=== PATIENT | female | born 1995 | race Caucasian/White ===

== ENCOUNTER 2017-12-07 10:11 | Emergency (ER) | payer OTHER ==
[2017-12-07 10:16] VITALS: BMI 24.2
--- NOTE | 2017-12-07 11:17 | PDOC ---
History of Present Illness - General Chief Complaint: Pain Stated Complaint: ABD PAIN Time Seen by Provider: 12/07/17 10:42 History Source: Patient - History of Present Illness Timing/Duration: reports: constant Quality: reports: severe Abdominal Pain Onset Location: reports: suprapubic Past History - Past Medical History Allergies/Adverse Reactions: Allergies Allergy/AdvReac Type Severity Reaction Status Date / Time lidocaine Allergy Verified 12/07/17 10:17 Home Medications: Ambulatory Orders Ibuprofen [Motrin -] 2 tab PO Q6H #30 tablet 12/07/17 COPD: No - Suicide/Smoking/Psychosocial Hx Smoking History: Never smoked Information on smoking cessation initiated: No Review of Systems - Review of Systems Constitutional: No: Chills, Fever ABD/GI: Yes: Abdominal cramping. No: Blood Streaked Bowels, Constipated, Diarrhea, Nausea, Rectal Bleeding, Vomiting : No: Dysuria, Discharge, Flank Pain, Hematuria, Lesions Musculoskeletal: No: Back Pain *Physical Exam - Vital Signs Last Vital Signs Temp Pulse Resp BP Pulse Ox 99.2 F 100 H 18 144/93 100 12/07/17 10:13 12/07/17 10:13 12/07/17 10:13 12/07/17 10:13 12/07/17 11:06 - Physical Exam General Appearance: Yes: Appropriately Dressed, Mild Distress HEENT: positive: Normal Voice Neck: positive: Supple Respiratory/Chest: negative: Respiratory Distress Female Pelvic Exam: positive: normal external exam, cervical os closed, adnexal tenderness (on the L). negative: CMT, discharge, lesions, vaginal bleeding Gastrointestinal/Abdominal: positive: Normal Bowel Sounds, Tender (sig ttp to suprapubic area diffusely, NT over mcburneys), Soft. negative: Distended, Guarding, Rebound, Hernia Musculoskeletal: negative: CVA Tenderness Extremity: positive: Normal Inspection Integumentary: positive: Dry, Warm Neurologic: positive: Fully Oriented, Alert, Normal Mood/Affect ED Treatment Course - LABORATORY CBC & Chemistry Diagram: 12/07/17 11:15 12/07/17 11:15 Medical Decision Making - Medical Decision Making 12/07/17 11:12 22-year-old female, denies any past medical history, here with pelvic pain. Pt states she was in her usual state of health until last night when she developed diffuse pelvic pain greater on the left. Patient reports that she fell asleep at some point and woke up this morning with severe pain with urination. No hematuria, flank pain, nausea, vomiting, fever or chills. Denies any abnormal vaginal discharge, foul odor, itching, acute change in bowel movements. No h/o similar pain. ? h/o fibroids. Reports heavy monthly menses. No known h/o ovarian cysts. Sexually active. Not on any control. Denies any history of STDs. ? h/o renal stones, no h/o gallstones See exam Pelvic pain R/o preg vs uti vs torsion vs PID/TOA vs appy -pain control -[employer] -labs -UA -US vs CT 12/07/17 12:37 12/07/17 12:49 test negative. Rest of labs and UA unremarkable. Ultrasound in progress. Might need CT rule out appy though not sig tender over mcburneys. 12/07/17 15:05 Ultrasound read as most likely ruptured hemorrhagic R ovarian cyst with small amount of free fluid, no evidence of torsion. Patient significantly improved with meds. Stable for discharge with pain control, watchful waiting and [employer] referral. Reasons to return to ER discussed with patient *DC/Admit/Observation/Transfer Diagnosis at time of Disposition: Ruptured ovarian cyst - Discharge Dispostion Disposition: HOME Condition at time of disposition: Improved - Prescriptions Prescriptions: Ibuprofen [Motrin -] 2 tab PO Q6H #30 tablet - Referrals Referrals: Sima Sweeney MD [Primary Care Provider] - Param Burnett MD [Staff Physician] - - Patient Instructions Printed Discharge Instructions: Ovarian Cyst Additional Instructions: You have a right ovarian cyst which are common in young woman of reproductive age. Fortunately, most ovarian cyst did not require surgery but are treated with pain medications and watchful waiting to see if cyst resolve on its own which they often do You will need to follow up with COMM[employer]ITY [employer]ICE WORKER in a week or 2 for further evaluation and management. If in this period of observation the cyst enlarges, surgery can be a possibility. Return to ER for worsening pain, dizziness, nausea or vomiting - Post Discharge Activity
[2017-12-07 11:32] LABS: BASO % 0.8 % (0-2.0); EOS % 4.4 % (0-4.5); HEMATOCRIT 42.5 % (32.4-45.2); HEMOGLOBIN 14.4 GM/dL (10.7-15.3); LYMPH % 24.5 % (8-40); MCH 29.5 pg (25.7-33.7); MCHC 33.8 g/dl (32.0-36.0); MEAN CELL VOLUME 87.1 fl (80-96); MEAN PLT VOLUME 8.2 fl (7.5-11.1); MONO % 8.6 % (3.8-10.2); NEUT % 61.7 % (42.8-82.8); PLATELET COUNT 264 K/MM3 (134-434); RBC 4.88 M/mm3 (3.60-5.2); RDW 13.7 % (11.6-15.6); WHITE BLOOD COUNT 8.3 K/mm3 (4.0-10.0)
[2017-12-07 11:54] LABS: ALBUMIN 3.8 g/dl (3.4-5.0); ALK PHOS 50 U/L (45-117); ANION GAP 8 MMOL/L (8-16); BILIRUBIN,TOTAL 0.4 mg/dL (0.2-1.0); BLOOD UREA NITROGEN 14 mg/dL (7-18); CHLORIDE 106 mmol/L (98-107); CO2 25 mmol/L (21-32); CREATININE 0.7 mg/dL (0.55-1.02); GLUCOSE,RANDOM 91 mg/dL (74-106); LIPASE 160 U/L (73-393); SGOT/AST 18 U/L (15-37); SGPT/ALT 19 U/L (12-78); SODIUM 139 mmol/L (136-145); TOT PROT 7.3 g/dl (6.4-8.2)
[2017-12-07 12:07] LABS: URINE APPEARANCE CLOUDY; URINE BILIRUBIN NEGATIVE (<2.0 mg/dL); URINE COLOR YELLOW; URINE GLUCOSE (UA) NEGATIVE (NEGATIVE); URINE KETONE NEGATIVE (NEGATIVE); URINE LEUK ESTERASE NEGATIVE (NEGATIVE); URINE NITRITE NEGATIVE (NEGATIVE); URINE PROTEIN NEGATIVE (NEGATIVE); URINE UROBILINOGEN NEGATIVE mg/dL (0.2-1.0)
[2017-12-07] MEDS ORDERED: ACETAMINOPHEN 1000 MG/100 ML VIAL (NON FORMULARY) IVPB ONE (12:36)
[2017-12-07] MEDS ORDERED: ACETAMINOPHEN INJECTION 100 ML IVPB ONE (12:39)
--- NOTE | 2017-12-07 13:01 | PDOC ---
*Physical Exam - Vital Signs Last Vital Signs Temp Pulse Resp BP Pulse Ox 99.2 F 100 H 18 144/93 100 12/07/17 10:13 12/07/17 10:13 12/07/17 10:13 12/07/17 10:13 12/07/17 11:06 - Physical Exam Comments: 12/07/17 13:00 The patient was examined by [HIPOLITO Guadalupe] under my direct supervision. I personally evaluated the patient. I concur with the above findings and the plan of care. ED Treatment Course - LABORATORY CBC & Chemistry Diagram: 12/07/17 11:15 12/07/17 11:15 - ADDITIONAL ORDERS Additional order review: Laboratory Results 12/07/17 12/07/17 12/07/17 12:14 11:15 11:15 Sodium 139 Potassium 4.0 Chloride 106 Carbon Dioxide 25 Anion Gap 8 BUN 14 Creatinine 0.7 Creat Clearance w eGFR > 60 Random Glucose 91 Calcium 9.0 Total Bilirubin 0.4 AST 18 ALT 19 Alkaline Phosphatase 50 Total Protein 7.3 Albumin 3.8 Lipase 160 Serum , Qual Negative Urine Color Yellow Urine Appearance Cloudy Urine pH 8.0 Ur Specific [place] 1.016 Urine Protein Negative Urine Glucose (UA) Negative Urine Ketones Negative Urine Blood Negative Urine Nitrite Negative Urine Bilirubin Negative Urine Urobilinogen Negative Ur Leukocyte Esterase Negative 12/07/17 11:15 RBC 4.88 MCV 87.1 MCHC 33.8 RDW 13.7 MPV 8.2 Neutrophils % 61.7 Lymphocytes % 24.5 Monocytes % 8.6 Eosinophils % 4.4 Basophils % 0.8 - Medications Given in the ED: ED Medications Discontinued Medications Generic Name Dose Route Start Last Admin Trade Name Vazquez PRN Reason Stop Dose Admin Acetaminophen 1,000 mg 12/07/17 12:36 12/07/17 12:48 Ofirmev Injection - IVPB 12/07/17 12:37 1,000 mg ONCE ONE Administration *DC/Admit/Observation/Transfer - Referrals Referrals: Sima Sweeney MD [Primary Care Provider] - - Patient Instructions - Post Discharge Activity
[2017-12-07] MEDS ORDERED: KETOROLAC TROMETHAMINE 30 MG/1 ML VIAL IVPUSH ONE (14:58)
[2017-12-07] MEDS ORDERED: KETOROLAC TROMETHAMINE 30 MG/1 ML VIAL ONE (15:10)
[2017-12-07 15:21] VITALS: BP 123/71; PULSE 78; TEMP 98.2
== END 2017-12-07 15:21 | disposition home or self-care (01) ==
LOC: JER 10:11
PROC: 3E033NZ Introduction of Analgesics, Hypnotics, Sedatives into Peripheral Vein, Percutaneous Approach (ICD-10-PCS; principal; 2017-12-07)
PROC: 3E0333Z Introduction of Anti-inflammatory into Peripheral Vein, Percutaneous Approach (ICD-10-PCS; 2017-12-07)
DX: N83.201 Unspecified ovarian cyst, right side (principal)
CPT/HCPCS: 36415; 76830-TC; 76856-TC; 80053; 81003; 83690; 84703; 85025; 87086; 87491; 87591; 99282-25; J0131

== ENCOUNTER 2018-03-13 14:51 | Emergency (ER) | payer OTHER ==
[2018-03-13 15:14] VITALS: BP 123/69; PULSE 91; TEMP 98.1; BMI 24.2
--- NOTE | 2018-03-13 16:00 | PDOC ---
History of Present Illness - General Chief Complaint: Injury Stated Complaint: RT INJURY Time Seen by Provider: 03/13/18 15:04 History Source: Patient Exam Limitations: No Limitations - History of Present Illness Initial Comments: 22 yo F no significant PMH presents with R ankle and foot pain. She states she rolled her ankle last night, went to bed. Today she has been unable to put her full weight on the R ankle due to pain. She noticed significant swelling to the outer part of her ankle. No weakness, numbness. Past History - Past Medical History Allergies/Adverse Reactions: Allergies Allergy/AdvReac Type Severity Reaction Status Date / Time lidocaine Allergy Verified 12/07/17 10:17 Home Medications: Ambulatory Orders Ibuprofen [Motrin -] 2 tab PO Q6H #30 tablet 12/07/17 COPD: No - Suicide/Smoking/Psychosocial Hx Smoking History: Never smoked Have you smoked in the past 12 months: No Information on smoking cessation initiated: No Hx Alcohol Use: No Drug/Substance Use Hx: No Review of Systems - Review of Systems Able to Perform ROS?: Yes Comments:: GENERAL/CONSTITUTIONAL: No fever or chills. No weakness. HEAD, EYES, EARS, NOSE AND THROAT: No change in vision. No ear pain or discharge. No sore throat. CARDIOVASCULAR: No chest pain or shortness of breath. RESPIRATORY: No cough, wheezing, or hemoptysis. GASTROINTESTINAL: No nausea, vomiting, diarrhea or constipation. GENITOURINARY: No dysuria, frequency, or change in urination. MUSCULOSKELETAL: R ankle pain and swelling. No neck or back pain. SKIN: No rash NEUROLOGIC: No headache, vertigo, loss of consciousness, or change in strength/ sensation. ENDOCRINE: No increased thirst. No abnormal weight change. HEMATOLOGIC/LYMPHATIC: No anemia, easy bleeding, or history of blood clots. ALLERGIC/IMMUNOLOGIC: No hives or skin allergy. *Physical Exam - Vital Signs Last Vital Signs Temp Pulse Resp BP Pulse Ox 98.1 F 91 H 20 123/69 99 03/13/18 14:52 03/13/18 14:52 03/13/18 14:52 03/13/18 14:52 03/13/18 14:52 - Physical Exam Comments: GENERAL: Awake, alert, and fully oriented, in no acute distress HEAD: No signs of trauma EYES: PERRLA, EOMI, sclera anicteric, conjunctiva clear ENT: Auricles normal inspection, hearing grossly normal, nares patent, oropharynx clear without exudates. Moist mucosa NECK: Normal ROM, supple, no lymphadenopathy, JVD, or masses LUNGS: Breath sounds equal, clear to auscultation bilaterally. No wheezes, and no crackles HEART: Regular rate and rhythm, normal S1 and S2, no murmurs, rubs or gallops ABDOMEN: Soft, nontender, normoactive bowel sounds. No guarding, no rebound. No masses EXTREMITIES: R ankle with swelling and hematoma to lateral malleolus. + Tenderness to the tip of the malleolus. +Tenderness over the R 5th metatarsal, no deformity. Remainder of extremities with normal range of motion, no edema. No clubbing or cyanosis. No cords, erythema, or tenderness NEUROLOGICAL: Cranial nerves II through XII grossly intact. Normal speech. Motor and sensation intact. Antalgic gait. SKIN: Warm, Dry, normal turgor, no rashes or lesions noted. Moderate Sedation - Procedure Monitoring Vital Signs: Procedure Monitoring Vital Signs Temperature 98.1 F 03/13/18 14:52 Pulse Rate 91 H 03/13/18 14:52 Respiratory Rate 20 03/13/18 14:52 Blood Pressure 123/69 03/13/18 14:52 O2 Sat by Pulse Oximetry (%) 99 03/13/18 14:52 Procedures - Splinting Splint Location: Right: Foot Pre-Made Type: aircast Medical Decision Making - Medical Decision Making XR reviewed, no acute findings. Stable for DC home. Aircast placed. *DC/Admit/Observation/Transfer Diagnosis at time of Disposition: Ankle pain Qualifiers: Chronicity: acute Laterality: right Qualified Code(s): M25.571 - Pain in right ankle and joints of right foot - Discharge Dispostion Disposition: HOME Condition at time of disposition: Stable Decision to Admit order: No - Referrals - Patient Instructions Printed Discharge Instructions: DI for Ankle Sprain - Post Discharge Activity
== END 2018-03-13 17:00 | disposition home or self-care (01) ==
LOC: FER 14:51
PROC: 2W3QX1Z Immobilization of Right Lower Leg using Splint (ICD-10-PCS; principal; 2018-03-13)
DX: M25.571 Pain in right ankle and joints of right foot (principal); X58.XXXA Exposure to other specified factors, initial encounter; Y93.89 Activity, other specified; Y92.89 Other specified places as the place of occurrence of the external cause
CPT/HCPCS: 29515; 73610-TC-RT-FY; 73630-TC-RT-FY; 99282-25

== ENCOUNTER 2018-05-26 23:51 | Emergency (ER) | payer OTHER ==
[2018-05-27 00:13] VITALS: BP 135/83; PULSE 92; TEMP 98.7; BMI 23.1
--- NOTE | 2018-05-27 02:35 | PDOC ---
History of Present Illness - General Chief Complaint: Pain, Acute Stated Complaint: LOWER ABDOMINAL PAIN Time Seen by Provider: 05/27/18 02:35 Past History - Past Medical History Allergies/Adverse Reactions: Allergies Allergy/AdvReac Type Severity Reaction Status Date / Time lidocaine Allergy Verified 05/27/18 00:10 Home Medications: Ambulatory Orders Cephalexin [Keflex] 500 mg PO TID #21 capsule 05/27/18 COPD: No - Reproductive History Is Patient Now?: No - Immunization History Immunization Up to Date: Yes - Suicide/Smoking/Psychosocial Hx Smoking History: Never smoked Have you smoked in the past 12 months: No Information on smoking cessation initiated: No Hx Alcohol Use: No Drug/Substance Use Hx: No *Physical Exam - Vital Signs Last Vital Signs Temp Pulse Resp BP Pulse Ox 98.7 F 92 H 20 135/83 100 05/27/18 00:10 05/27/18 00:10 05/27/18 00:10 05/27/18 00:10 05/27/18 00:10 Moderate Sedation - Procedure Monitoring Vital Signs: Procedure Monitoring Vital Signs Temperature 98.7 F 05/27/18 00:10 Pulse Rate 92 H 05/27/18 00:10 Respiratory Rate 20 05/27/18 00:10 Blood Pressure 135/83 05/27/18 00:10 O2 Sat by Pulse Oximetry (%) 100 05/27/18 00:10 Medical Decision Making - Medical Decision Making 05/27/18 04:36 Patient Name: JESSICA ESCOBAR THIS IS A PRELIMINARY REPORT FROM [facility] DATE OF SERVICE: 2018-05-27 03:50:50 IMAGES: [id number] EXAM: CT abdomen and pelvis without contrast HISTORY: Flank pain COMPARISON: None. FINDINGS:Serial axial sections through the abdomen and pelvis were obtained. No intravenous contrast was given. Coronal and sagittal reconstructions were formatted. Sections through the lung bases are unremarkable. The liver and spleen have a normal size and configuration. The gallbladder, biliary tree and pancreas are unremarkable. The kidneys are without stone or hydronephrosis. No solid renal mass is identified. The bowel gas pattern is unremarkable. There is no abnormal bowel wall thickening or evidence of diverticulitis. The appendix is normal. The pelvic structures are unremarkable. There is a small amount of free fluid in the pelvis. There is no pathologic adenopathy. The aorta has normal caliber. The osseous structures are normally aligned. IMPRESSION: There is mild free fluid in pelvis. This is most likely physiologic. Consider a ruptured cyst. No adnexal masses seen. No other significant findings are seen in the abdomen and pelvis. 05/27/18 05:02 Pt has calcium oxalate crystals. Pt has no kidney stones. + blood and some WBC. I will treat for UTI *DC/Admit/Observation/Transfer Diagnosis at time of Disposition: UTI (urinary tract infection) - Discharge Dispostion Disposition: HOME Condition at time of disposition: Stable Decision to Admit order: No - Prescriptions Prescriptions: Cephalexin [Keflex] 500 mg PO TID #21 capsule - Referrals Referrals: Sima Sweeney MD [Primary Care Provider] - - Patient Instructions Printed Discharge Instructions: Urinary Tract Infection - Post Discharge Activity Forms/Work/School Notes: Back to Work
[2018-05-27] MEDS ORDERED: IBUPROFEN 600 MG TABLET (FP) PO ONE ×2 (02:42→02:46)
[2018-05-27] MEDS ORDERED: CEPHALEXIN MONOHYDRATE 500 MG CAPSULE (UD) PO ONE (02:42)
[2018-05-27] MEDS ORDERED: CEPHALEXIN MONOHYDRATE 500 MG CAPSULE (UD) ONE (02:46)
[2018-05-27 03:16] LABS: URINE APPEARANCE CLOUDY; URINE BILIRUBIN NEGATIVE (<2.0 mg/dL); URINE COLOR YELLOW; URINE GLUCOSE (UA) NEGATIVE (NEGATIVE); URINE KETONE NEGATIVE (NEGATIVE); URINE LEUK ESTERASE NEGATIVE (NEGATIVE); URINE NITRITE NEGATIVE (NEGATIVE); URINE PROTEIN 1+ (NEGATIVE)
[2018-05-27 03:18] LABS: HCG,QUALITATIVE URINE Negative
[2018-05-27 03:26] LABS: CALCIUM OXALATE CRYSTALS MANY /hpf (NONE SEEN); EPI CELLS RARE /HPF (FEW); URINE MUCUS RARE
== END 2018-05-27 04:13 | disposition home or self-care (01) ==
LOC: JER 23:51
DX: N39.0 Urinary tract infection, site not specified (principal)
CPT/HCPCS: 74176-TC; 81003; 81015; 84703; 99282-25

== ENCOUNTER 2021-03-31 09:27 | Emergency (ER) | payer BC, OTHER ==
[2021-03-31 09:32] VITALS: BP 124/81; PULSE 109; TEMP 97.7
== END 2021-03-31 11:48 | disposition home or self-care (01) ==
LOC: JER 09:27 → JERFT 09:27
PROC: 0HQKXZZ Repair Right Lower Leg Skin, External Approach (ICD-10-PCS; principal; 2021-03-31)
DX: S81.811A Laceration without foreign body, right lower leg, initial encounter (principal); W26.8XXA Contact with other sharp object(s), not elsewhere classified, initial encounter
CPT/HCPCS: 73610-TC-RT-FY; 73630-TC-RT-FY; 99283-25